=== PATIENT | male | born 1990 | race Caucasian/White ===

== ENCOUNTER 2019-01-24 03:40 | Inpatient (IN) | payer SELFPAY ==
[~2019-01-24] VITALS: Ht 182.9 cm; Wt 188.3 kg
--- OUTSIDE RECORDS SUMMARY | 2019-01-24 03:43 | XMS REPORT | Continuity of Care Document ---
Author Author [facility] Interface Address Unknown Phone Unavailable Problems Problem Status Onset Date Classification Date Reported Comments Source Otitis externa 01/06/2018 Diagnosis 01/06/2018 [facility] Medications Medication Details Route Status Patient Instructions Ordering Provider Order Date Source Ofloxacin 3 MG/ML Otic Solution ofloxacin 0.3 % ear drops INSTILL 10 DROPS (1.5 MG) INTO AFFECTED EAR(S) BY OTIC ROUTE 2 TIMES PER DAY x 10 days Active [facility] Allergies, Adverse Reactions, Alerts Substance Category Reaction Severity Reaction type Status Date Reported Comments Source Immunizations Immunization Date Given Site Status Last Updated Comments Source Results Order Name Results Value Reference Range Date Interpretation Comments Source Vital Signs Vital Sign Value Date Comments Source Diastolic (mm Hg) 80 01/06/2018 [facility] Height 72 01/06/2018 [facility] Systolic (mm Hg) 124 01/06/2018 [facility] Weight 350 01/06/2018 [facility] Encounters Location Location Details Encounter Type Encounter Number Reason For Visit Attending Provider ADM Date DC Date Status Source [place] - [facility] - [id number] Elroy Flores, [employer]: [address] [place] [address], Ph. [id number] Elroy Flores 01/06/2018 [facility] Procedures Procedure Code Date Perfomer Comments Source
--- OUTSIDE RECORDS SUMMARY | 2019-01-24 03:43 | XMS REPORT | Encounter Summary ---
Author Organization Unknown Address [address] [place] [address] Phone [phone] Reason for Visit Medical Complaint Instructions 1. Otitis externa ofloxacin 0.3 % ear drops swimmer's ear: care instructions Discussion Note Keep ear(s) dry when bathing/showering. Avoid swimming until treatment is complete. May use acetaminophen (ex: Tylenol) or ibuprofen (ex: Motrin) as indicated on package for pain. May use a warm compress for pain. Take medication(s) as prescribed for the indicated length of time. If no improvement in 3-5 days, or if new or worsening symptoms develop, follow up with a primary care physician. Use an additional form of control as antibiotics may decrease the effectiveness of control pills. Plan of Care Patient Instructions See handout Reminders Provider Appointments None recorded. Lab None recorded. Referral None recorded. Procedures None recorded. Surgeries None recorded. Imaging None recorded. Medications Name Start Date ofloxacin 0.3 % ear drops INSTILL 10 DROPS (1.5 MG) INTO AFFECTED EAR(S) BY OTIC ROUTE 2 TIMES PER DAY x 10 days Medications Administered None recorded. Vitals Height Weight BMI Blood Pressure 6 ft 350 lbs 47.5 kg/m2 124/80 mm[Hg] Lab Results None recorded. Allergies Code Code System Name Reaction Severity Status Onset NKDA Problems No Known Problems Procedures None recorded. Vaccine List None recorded. Social History Smoking Status Never Smoker Past Encounters 01/06/2018 Otitis Externa LATISHA Mallory: [address] [facility], [place] [address], Ph. History of Present Illness Ear Complaint Reported By: Patient HPI: Location: left. Quality: ears feel full/plugged, aching. Severity: same, continuous, current pain 7/10. Duration: constant, started 24 hours. Onset/Timing: still present, abrupt onset. Context: no sick contacts, no recent swimming/water in ear, no exposure to second hand smoke, no head trauma, not grinding teeth, no recent air travel. Modifying factors: hurts to lie on, or pull on ear, hurts to chew, OTC medication. Associated Symptoms: no discharge from the ears, no hearing loss, no nose/sinus problems, no popping noise in the ears, no ringing in the ears, no fever, no chills, no earache, no dizziness, no vertigo, no headache, no muscle aches Review of Systems:ROS as noted in the HPI Review of Systems Basic Reported By: Patient Physical Exam Adult Basic Reported By: Patient Constitutional: General Appearance: healthy-appearing, well-nourished, well-developed. Level of Distress: NAD. Ambulation: ambulating normally Psychiatric: Mental Status: active and alert. Orientation: to time, to place, to person Goz-Ovwv-Frgos-Throat: Ears: no lesions on external ear, no outer ear tenderness, TMs clear, EAC abnormality. Hearing: no hearing loss
[2019-01-24 05:28] LABS: BASOPHILS # (AUTO) 0.1 (0.0-0.1); BASOPHILS % 0.4 % (0.0-1.0); EOSINOPHILS # (AUTO) 0.2 (0.0-0.4); EOSINOPHILS % 1.2 % (0.0-6.0); HEMOGLOBIN 14.3 g/dL (14.0-18.0); LYMPHOCYTES # (AUTO) 5.1 (1.0-3.2); LYMPHOCYTES % 33.8 % (18.0-39.1); MEAN CORPUSCULAR HEMOGLOBIN 29.8 pg (28-32); MEAN CORPUSCULAR VOLUME 87.5 fL (81-99); MONOCYTES # (AUTO) 1.6 (0.2-0.8); MONOCYTES % 10.7 % (4.4-11.3); NEUTROPHILS # (AUTO) 8.1 (2.1-6.9); NEUTROPHILS % 53.4 % (38.7-80.0); PLATELET COUNT 279 x10e3/uL (140-360); RED CELL DISTRIBUTION WIDTH 12.7 % (11.7-14.4)
[2019-01-24 05:39] LABS: BILIRUBIN,URINE NEGATIVE (NEGATIVE); CLARITY,URINE CLOUDY (CLEAR); COLOR,URINE YELLOW (YELLOW); KETONES,URINE NEGATIVE (NEGATIVE); LEUKOCYTE ESTERASE ,URINE NEGATIVE (NEGATIVE); NITRITE,URINE NEGATIVE (NEGATIVE); PROTEIN,URINE DIPSTICK NEGATIVE (NEGATIVE); URINE UROBILINOGEN 0.2 mg/dL (0.2 - 1)
[2019-01-24] MEDS ORDERED: KETOROLAC TROMETHAMINE 30 MG/ML VIAL IV STA (05:45)
[2019-01-24] MEDS ORDERED: DICYCLOMINE HCL 20 MG/2 ML VIAL IM ONE (05:45)
[2019-01-24 05:49] LABS: ALANINE AMINOTRANSFERASE 57 IU/L (0-55); ALBUMIN 3.6 g/dL (3.5-5.0); ALBUMIN/GLOBULIN RATIO 0.9 (0.8-2.0); ALKALINE PHOSPHATASE 78 IU/L (40-150); AMYLASE 49 U/L (25-125); ANION GAP 10.6 mmol/L (8-16); BLOOD UREA NITROGEN 12 mg/dL (7-26); BUN/CREATININE RATIO 10 (6-25); CALCIUM 9.2 mg/dL (8.4-10.2); CARBON DIOXIDE 26 mmol/L (22-29); CHLORIDE 104 mmol/L (98-107); CREATININE, SERUM 1.15 mg/dL (0.72-1.25); EST GLOMERULAR FILTRATION RATE > 60 ML/MIN (60-); GLUCOSE 117 mg/dL (74-118); LIPASE 52 U/L (8-78); POTASSIUM 3.6 mmol/L (3.5-5.1); SODIUM 137 mmol/L (136-145)
[2019-01-24 06:01] LABS: BACTERIA,URINE FEW /HPF; EPITHELIAL CELLS,URINE RARE /LPF; RBC,URINE >50 /HPF (0-5); WBC,URINE (MAN) 0-5 /HPF (0-5)
[2019-01-24 06:02] LABS: YEAST,URINE FEW
[2019-01-24] MEDS ORDERED: SODIUM CHLORIDE 0.9% 1000ML 1,000 ML IV SCH (06:15)
[2019-01-24] MEDS ORDERED: IOPAMIDOL 370 MG/ML 200 ML INFUS..BTL INJ ONE (06:18)
[2019-01-24] MEDS ORDERED: SODIUM CHLORIDE 0.9% 50ML 50 ML ONE (06:18)
--- NOTE | 2019-01-24 06:56 | Diagnostic Imaging Report ---
EXAMINATION: CT of the abdomen and pelvis with contrast. TECHNIQUE: Spiral CT images of the abdomen and pelvis were performed from the lung bases to the lesser trochanters after the intravenous administration of 100 cc of Isovue 370 and the oral administration of water. Coronal and sagittal reformatted images were obtained. COMPARISON: None. CLINICAL HISTORY:Right lower quadrant pain radiating to the groin DISCUSSION: ABDOMEN/PELVIS: LOWER THORAX:Unremarkable. HEPATOBILIARY: Diffuse hepatic steatosis. No focal hepatic lesions. No intra or extrahepatic biliary ductal dilation. GALLBLADDER: No radio-opaque stones or sludge. No wall thickening. SPLEEN: No splenomegaly. PANCREAS: No focal masses or ductal dilatation. ADRENALS: No adrenal nodules. KIDNEYS/URETERS: 2-3 mm calculus in the distal right ureter (series 2, image 90), which results in mild periureteral stranding, and a slightly delayed right nephrogram. No geraldo hydronephrosis or hydroureter. 5 mm nonobstructing calculus in the right mid to inferior aspect (series 2, image 44). No other renal or ureteral calculi. No left hydronephrosis or hydroureter. No solid enhancing masses. PELVIC ORGANS/BLADDER: No focal lesions, wall thickening or stones. Prostate is unremarkable. PERITONEUM/RETROPERITONEUM: No free air or fluid. LYMPH NODES: No intra-abdominal, retroperitoneal, pelvic or inguinal lymphadenopathy. VESSELS: The celiac trunk,superior and inferior mesenteric and bilateral renal arteries are patent The portal, superior mesenteric and splenic veins are patent. GI TRACT: No bowel dilation or wall thickening. No pericolonic inflammatory changes. Appendix is identified and normal in caliber. BONES AND SOFT TISSUE: No aggressive lytic lesions. No soft tissue abnormalities. IMPRESSION: 1. 2-3 mm calculus in the distal right ureter, which results in mild periureteral stranding and a slightly delayed right nephrogram. No geraldo hydronephrosis or hydroureter. 2. 5 mm nonobstructing calculus in the mid to inferior right kidney. 3. Diffuse hepatic steatosis. Signed by: Dr. Tristan Sosa M.D. on 01/24/2019 6:53 AM
[2019-01-24] MEDS ORDERED: MORPHINE SULFATE 2 MG/ML SYR 1ML IV PRN (07:00)
[2019-01-24] MEDS: SODIUM CHLORIDE 0.9% 1000ML 1,000 ML IV SCH ×3 (07:16→22:23)
--- OUTSIDE RECORDS SUMMARY | 2019-01-24 07:21 | XMS REPORT ---
Author Author [facility] Address Unknown Phone Unavailable Care Team Providers Care Celery Stripper Name Role Phone Adam HAMILTON Unavailable Unavailable Problems This patient has no known problems. Allergies, Adverse Reactions, Alerts This patient has no known allergies or adverse reactions. Medications This patient has no known medications. Results Test Description Test Time Test Comments Text Results Atomic Results Result Comments CT ABDOMEN/PELVIS W 2019-01-24 06:46:00 [place] [address] Patient Name: ZULEMA COOPER MR #: [id number] : 1990 Age/Sex: 28/M Req #: [id number] Adm Physician: Ordered by: BRENDON HAMILTON MD Report #: [id number] Location: ER Room/Bed: Procedure: [id number] CT/CT ABDOMEN/PELVIS W Exam Date: 01/24/19 Exam Time: 624 REPORT STATUS: Signed EXAMINATION: CT of the abdomen and pelvis with contrast . TECHNIQUE: Spiral CT images of the abdomen and pelvis were performed from the lung bases to the lesser trochanters after the intravenous administration of 100 cc of Isovue 370 and the oral administration of water. Coronal and sagittal reformatted images were obtained. COMPARISON: None. CLINICAL HISTORY:Right lower quadrant pain radiating to the groin DISCUSSION: ABDOMEN/PELVIS: LOWER THORAX:Unremarkable. HEPATOBILIARY: Diffuse hepatic steatosis. No focal hepatic lesions. No intra or extrahepatic biliary ductal dilation. GALLBLADDER: No radio-opaque stones or sludge. No wall thickening. SPLEEN: No splenomegaly. PANCREAS: No focal masses or ductal dilatation. ADRENALS: No adrenal nodules. KIDNEYS/URETERS: 2-3 mm calculus in the distal right ureter (series 2, image 90), which results in mild periureteral stranding, and a slightly delayed right nephrogram. No geraldo hydronephrosis or hydroureter. 5 mm nonobstructing calculus in the right mid to inferior aspect (series 2, image 44). No other renal or ureteral calculi. No left hydronephrosis or hydroureter. No solid enhancing masses. PELVIC ORGANS/BLADDER: No focal lesions, wall thickening or stones. Prostate is unremarkable. PERITONEUM/RETROPERITONEUM: No free air or fluid. LYMPH NODES: No intra- abdominal, retroperitoneal, pelvic or inguinal lymphadenopathy. VESSELS: The celiac trunk,superior and inferior mesenteric and bilateral renal arteries are patent The portal, superior mesenteric and splenic veins are patent. GI TRACT: No bowel dilation or wall thickening. No pericolonic inflammatory changes. Appendix is identified and normal in caliber. BONES AND SOFT TISSUE: No aggressive lytic lesions. No soft tissue abnormalities. IMPRESSION: 1. 2-3 mm calculus in the distal right ureter, which results in mild periureteral stranding and a slightly delayed right nephrogram. No geraldo hydronephrosis or hydroureter. 2. 5 mm nonobstructing calculus in the mid to inferior right kidney. 3. Diffuse hepatic steatosis. Signed by: Dr. Bakari Ordoñez M.D. on 01/24/2019 6:53 AM Dictated By: BAKARI ORDOÑEZ MD 2 Transcribed By: GODWIN on 01/24/19652 COPY TO: BRENDON HAMILTON MD
[2019-01-24] MEDS: CEFTRIAXONE SOD 1 GM/NS 50 ML 50 ML IV SCH (08:28)
[2019-01-24] MEDS: ONDANSETRON HCL INJ 2MG/ML 2ML 2 MG/ML VIAL IV PRN ×4 (08:50→20:23)
[2019-01-24] MEDS: MORPHINE SULFATE INJ 4 MG/ML INJ 1ML IV PRN ×4 (08:50→20:23)
--- NOTE | 2019-01-24 09:15 | NUR ---
PATIENT PLACED ON HOSPITAL BED.
--- NOTE | 2019-01-24 11:16 | NUR ---
Patient arrived from the ER via bed with diagnosis of pyelonephritis. Patient is awake and alertx3 in NAD. POC discussed. Vital signs are stable. Patient instructed to call for assistance as needed and verbalized understanding.
[2019-01-24 11:23] LABS: LYMPHOCYTES % (MANUAL) 47 % (19-48); MONOCYTES % (MANUAL) 4 % (3.4-9.0); NEUTROPHILS % (MANUAL) 45 % (40-74)
[2019-01-24 11:25] LABS: PLATELET ESTIMATE ADEQUATE; PLATELET MORPHOLOGY COMMENT NORMAL; RBC MORPHOLOGY COMMENT NORMAL
[2019-01-24 11:45] VITALS: BP 157/85
[2019-01-24 11:47] VITALS: BP 157/85
[2019-01-24 11:59] VITALS: BP 157/85
[2019-01-24 15:43] VITALS: BP 129/84
[2019-01-24 19:00] VITALS: BP 129/84
[2019-01-24 19:15] VITALS: BP 137/84
[2019-01-25] VITALS (7 sets, daily range): BP systolic 131–152; BP diastolic 77–86
[2019-01-25] MEDS: MORPHINE SULFATE INJ 4 MG/ML INJ 1ML IV PRN ×5 (00:50→12:30)
[2019-01-25] MEDS: ONDANSETRON HCL INJ 2MG/ML 2ML 2 MG/ML VIAL IV PRN ×4 (00:50→12:30)
--- NOTE | 2019-01-25 01:51 | History and Physical ---
CHIEF COMPLAINT: The patient comes in with abdominal pain. HISTORY OF PRESENTING ILLNESS: Mr. Franchesca Martinez is a 28-year-old morbidly obese gentleman, who was in usual state of health until the patient started with right flank pain and right lower quadrant pain radiating all the way to the groin area. The patient complains of pain and discomfort with urination and frequency, and pain is about 8/10 in intensity, and the patient came into the emergency room and was admitted for kidney stone and pyelonephritis. PAST MEDICAL HISTORY: Noncontributory. ALLERGIES: NO KNOWN ALLERGIES. SOCIAL HISTORY: Never smoker. MEDICATIONS: The patient is on Rocephin q.12 hours at this time, sodium chloride 100 mL an hour, morphine sulfate, and Zofran. FAMILY HISTORY: Noncontributory. PAST SURGICAL HISTORY: Noncontributory. REVIEW OF SYSTEMS: Negative for chest pain. No shortness of breath. No nausea, vomiting, or diarrhea. No constipation. No rectal bleeding. No hematochezia. No hematemesis. Positive for dysuria. LABORATORY DATA: The patient's initial laboratory values; white count of 15,000, hemoglobin of 14.3, hematocrit of 42.0. Chemistries; sodium 137, BUN of 12, creatinine of 1.5. Urine showed 4+ blood, negative leukocyte esterase, and also negative nitrites. IMAGING STUDIES: CT scan shows 2 to 3 mm calculus at the distal right ureter. There is also mild periureteral stranding and also slightly delayed right nephrogram. No geraldo hydronephrosis or hydroureter. A 5 mm nonobstructing calculus in the mid inferior right kidney and diffuse hepatic steatosis. ASSESSMENT: Pyelonephritis. We will continue culturing the urine. The patient is on morphine for pain control. A consult with Dr. Hunt will be done. Further recommendations per clinical course. We will continue to monitor the patient. MD ROSA ChildsJ/MODL /[id number]
[2019-01-25] MEDS: CEFTRIAXONE SOD 1 GM/NS 50 ML 50 ML IV SCH (06:20)
[2019-01-25 06:23] LABS: BASOPHILS # (AUTO) 0.1 (0.0-0.1); BASOPHILS % 0.4 % (0.0-1.0); EOSINOPHILS # (AUTO) 0.1 (0.0-0.4); EOSINOPHILS % 0.9 % (0.0-6.0); HEMATOCRIT 38.6 % (38.2-49.6); HEMOGLOBIN 12.6 g/dL (14.0-18.0); LYMPHOCYTES # (AUTO) 3.1 (1.0-3.2); LYMPHOCYTES % 23.2 % (18.0-39.1); MEAN CORPUSCULAR HEMOGLOBIN 29.6 pg (28-32); MEAN CORPUSCULAR HGB CONC 32.6 g/dL (31-35); MEAN CORPUSCULAR VOLUME 90.6 fL (81-99); MONOCYTES # (AUTO) 1.7 (0.2-0.8); MONOCYTES % 13.1 % (4.4-11.3); NEUTROPHILS # (AUTO) 8.2 (2.1-6.9); NEUTROPHILS % 62.1 % (38.7-80.0); PLATELET COUNT 233 x10e3/uL (140-360); RED BLOOD COUNT 4.26 x10e6/uL (4.3-5.7); RED CELL DISTRIBUTION WIDTH 12.8 % (11.7-14.4)
[2019-01-25 06:46] LABS: ANION GAP 10.8 mmol/L (8-16); CALCIUM 8.4 mg/dL (8.4-10.2); CREATININE, SERUM 1.61 mg/dL (0.72-1.25); POTASSIUM 3.8 mmol/L (3.5-5.1)
--- NOTE | 2019-01-25 07:00 | NUR ---
Patient is awake and alert x3. Currently NPO per Dr. Hunt and patient is aware. POC discussed. Patient instructed to call for assistance as needed and verbalized understanding. Call guadarrama within reach. Girl friend at the bedside.
[2019-01-25] MEDS: SODIUM CHLORIDE 0.9% 1000ML 1,000 ML IV SCH ×3 (08:41→22:16)
--- NOTE | 2019-01-25 17:00 | NUR ---
Dr. Hunt at the bedside making rounds. Patient informed by MD reason he was NPO and the need to ambulate frequently.
[2019-01-26] VITALS (8 sets, daily range): BP systolic 128–144; BP diastolic 70–94
--- NOTE | 2019-01-26 00:19 | Consultation ---
DATE OF CONSULTATION: 01/25/2019 Urology Consultation REASON FOR CONSULTATION: Ureterolithiasis. HISTORY OF PRESENT ILLNESS: Franchesca Martinez is a 28-year-old man with no previous urological history. Denies previous hematuria, dysuria, urinary tract infections, or urolithiasis. The patient has severe right-sided flank pain radiating to the right lower quadrant and radiating to the right testicle. He reported to the emergency room and was subsequently admitted. The patient was found to have small distal right ureterolithiasis and he was subsequently admitted. The nurses have been straining the urine and the patient knows to strain his urine. PAST MEDICAL AND SURGICAL HISTORY: Relatively unremarkable. ALLERGIES: NONE KNOWN. CURRENT MEDICATIONS: Please refer to MAR. SOCIAL HISTORY: The patient denies smoking, ethanol, or drug use. He is currently unemployed. FAMILY HISTORY: Significant for urolithiasis. REVIEW OF SYSTEMS: Discussed as above in history of present illness and past medical history, otherwise negative for all systems. PHYSICAL EXAMINATION: GENERAL: Healthy-appearing morbidly obese male, lying in bed, no apparent distress. VITAL SIGNS: He is currently afebrile. Vitals signs are currently stable. ABDOMEN: Soft, obese, nondistended, nontender without costovertebral angle tenderness. Kidneys are not palpable, without hepatosplenomegaly. No obvious evidence of hernia. GENITOURINARY: Testes descended bilaterally. Testes and epididymis bilaterally palpably normal. The patient has a normal circumcised male phallus with normal meatus without any lesion. Digital rectal examination is deferred at the present time. For the remaining physical examination and systems, please refer to the admission history and physical on the chart. LABORATORY STUDIES: The patient's white blood cell count is elevated at 13,180, hemoglobin slightly low at 12.6, platelets are normal at 233,000. The patient's creatinine is elevated at 1.61, yesterday it was normal at 1.15. Urinalysis is significant for microscopic hematuria. CT scan of the abdomen and pelvis revealed 2 to 3 mm stone in distal right ureter. No hydronephrosis was noted, but due to the fact the patient was given contrast with the CT despite having microscopic hematuria, some delay of contrast drainage was noted on the right-hand side. There was a 5 mm stone that is nonobstructing in the right kidney as well. ASSESSMENT: 1. Right distal ureterolithiasis. 2. Family history of urolithiasis. 3. Leukocytosis. 4. Anemia. 5. Presumably acute renal failure. 6. Microscopic hematuria. 7. Right renal colic. 8. Right nephrolithiasis, this is not obstructing. PLAN: 1. Stone passage trial. 2. IV hydration. 3. IV analgesia. 4. IV antibiotics. 5. Straining of the urine. 6. Stone passage trial should be the main formal therapy due to the fact the patient has well over 50% chance of passing this stone. 7. Ongoing urological followup is a must for both metabolic stone workup as well as management of his nonobstructing right renal stone. Thank you very much for allowing us in the care of your patient. We will be happy to follow along with you as well as an outpatient. Alvaro Hunt MD [place]/MODL /[id number] cc: Nas Triplett MD
[2019-01-26] MEDS: ONDANSETRON HCL INJ 2MG/ML 2ML 2 MG/ML VIAL IV PRN ×2 (01:35→05:43)
[2019-01-26] MEDS: MORPHINE SULFATE INJ 4 MG/ML INJ 1ML IV PRN ×2 (01:35→05:43)
[2019-01-26 06:00] LABS: BASOPHILS % 0.3 % (0.0-1.0); EOSINOPHILS # (AUTO) 0.1 (0.0-0.4); EOSINOPHILS % 1.1 % (0.0-6.0); HEMATOCRIT 36.4 % (38.2-49.6); LYMPHOCYTES # (AUTO) 2.4 (1.0-3.2); LYMPHOCYTES % 20.3 % (18.0-39.1); MEAN CORPUSCULAR HEMOGLOBIN 29.1 pg (28-32); MEAN CORPUSCULAR VOLUME 88.1 fL (81-99); MONOCYTES # (AUTO) 1.3 (0.2-0.8); MONOCYTES % 11.4 % (4.4-11.3); NEUTROPHILS # (AUTO) 7.7 (2.1-6.9); NEUTROPHILS % 66.4 % (38.7-80.0); PLATELET COUNT 225 x10e3/uL (140-360); RED BLOOD COUNT 4.13 x10e6/uL (4.3-5.7); RED CELL DISTRIBUTION WIDTH 12.3 % (11.7-14.4)
[2019-01-26] MEDS: CEFTRIAXONE SOD 1 GM/NS 50 ML 50 ML IV SCH (06:15)
[2019-01-26] MEDS: SODIUM CHLORIDE 0.9% 1000ML 1,000 ML IV SCH ×3 (06:16→17:04)
[2019-01-26 06:25] LABS: ANION GAP 10.5 mmol/L (8-16); CALCIUM 8.4 mg/dL (8.4-10.2); CREATININE, SERUM 1.57 mg/dL (0.72-1.25); POTASSIUM 3.5 mmol/L (3.5-5.1)
--- NOTE | 2019-01-26 07:18 | NUR ---
BEDSIDE ROUNDS COMPLETED AND ASSUMED CARE OF PATIENT, IVF INFUSING AT 125/HR. PIV HAS NO EVIDENCE OF INFILTRATION OR LEAKAGE. AT BEDSIDE
--- NOTE | 2019-01-26 10:00 | NUR ---
PATIENT COMPLAINS OF PAIN AT THE LOWER BACK AND ABDOMEN. HE WAS OFFERED IV MEDS AND REFUSED, CALLED DR. ADAME FOR PO PAIN MED, AND NORCO ORDERED.
--- NOTE | 2019-01-26 12:30 | NUR ---
PATIENT RECEIVED NORCO FOR PAIN AND SCALE IS 6/10
[2019-01-26] MEDS: HYDROCODONE/APAP 10MG-325MG TAB PO PRN ×2 (12:45→20:01)
--- NOTE | 2019-01-26 16:06 | Diagnostic Imaging Report ---
Exam: Abdominal film Clinical History: calculi Comparison: None. DISCUSSION: Nonobstructive bowel gas pattern. Right lower quadrant phlebolith. Prior punctate right distal ureteral stone passed. Prior punctate right renal calculus not visualized radiographically. IMPRESSION: Nonobstructive bowel gas pattern. Signed by: Dr. Tuan Nelson M.D. on 01/26/2019 4:02 PM
--- NOTE | 2019-01-26 16:30 | NUR ---
PATIENT HAS SHOWERED AND STATED THAT HE FORGOT TO TELL DR. STEIN THAT HE URINATED IN THE SHOWER AND EXPERIENCED PAIN, HE FEELS BETTER AND HAS NO PAIN NOW, WILL CALL [facility].
--- NOTE | 2019-01-26 16:40 | NUR ---
ABDOMINAL XRAY ORDERED TO SEE IF STONE CLEARED.
--- NOTE | 2019-01-26 18:00 | NUR ---
ABDOMINAL XRAY DONE AND SHOWS NO STONE PRESENT. [facility]
--- NOTE | 2019-01-26 19:30 | NUR ---
REPORT GIVEN TO MACKENZIE PAPPAS AND HE WILL NOTIFY [facility] OF THE XRAY RESULTS
[2019-01-27] VITALS: BP 124/70
[2019-01-27 04:00] VITALS: BP 140/73
[2019-01-27] MEDS: HYDROCODONE/APAP 10MG-325MG TAB PO PRN (04:31)
[2019-01-27] MEDS: CEFTRIAXONE SOD 1 GM/NS 50 ML 50 ML IV SCH (06:00)
[2019-01-27] MEDS: SODIUM CHLORIDE 0.9% 1000ML 1,000 ML IV SCH (06:00)
[2019-01-27 07:40] VITALS: BP 125/80
[2019-01-27 08:06] LABS: BASOPHILS # (AUTO) 0.1 (0.0-0.1); BASOPHILS % 0.5 % (0.0-1.0); EOSINOPHILS # (AUTO) 0.2 (0.0-0.4); EOSINOPHILS % 1.5 % (0.0-6.0); HEMATOCRIT 37.4 % (38.2-49.6); HEMOGLOBIN 12.6 g/dL (14.0-18.0); LYMPHOCYTES # (AUTO) 2.3 (1.0-3.2); LYMPHOCYTES % 19.5 % (18.0-39.1); MEAN CORPUSCULAR HEMOGLOBIN 29.9 pg (28-32); MEAN CORPUSCULAR HGB CONC 33.7 g/dL (31-35); MEAN CORPUSCULAR VOLUME 88.8 fL (81-99); MONOCYTES # (AUTO) 1.5 (0.2-0.8); MONOCYTES % 12.6 % (4.4-11.3); NEUTROPHILS # (AUTO) 7.7 (2.1-6.9); NEUTROPHILS % 65.6 % (38.7-80.0); PLATELET COUNT 225 x10e3/uL (140-360); RED BLOOD COUNT 4.21 x10e6/uL (4.3-5.7); RED CELL DISTRIBUTION WIDTH 12.4 % (11.7-14.4)
[2019-01-27 08:26] LABS: ANION GAP 9.7 mmol/L (8-16); CALCIUM 8.8 mg/dL (8.4-10.2); CREATININE, SERUM 1.54 mg/dL (0.72-1.25); POTASSIUM 3.7 mmol/L (3.5-5.1)
[2019-01-27 09:20] VITALS: BP 125/63
--- NOTE | 2019-01-27 09:42 | NUR ---
GAVE PACKET OF INFORMATION WITH [facility] [employer] FOR ASSISTANCE WITH LOW TO NO INCOME TO PATIENT. RESOURCES THAT PATIENT MAY BE ABLE TO FOLLOW UP UPON DISCHARGE. PT EDUCATED ON EACH RESOURCE AND UNDERSTANDING HOW TO FOLLOW UP TO SEE IF QUALIFIED FOR EACH RESOURCE.
[2019-01-27] MEDS ORDERED: CEPHALEXIN500 MG PO (09:50)
[2019-01-27] MEDS ORDERED: ULTRAM50 MG PO (09:50)
--- NOTE | 2019-01-27 09:55 | NUR ---
SOCIAL WORK INITIAL ASSESSMENT Utility Aide to bedside to discuss plan of care with patient/family. CM/SW role and care transitions discussed. Anticipated discharge plan discussed along with duration of care. CM/SW discussed patients right to make decisions in care. CM/SW work hours given. Patient lives: IN HOUSE WITH FAMILY Admit/Transfer: VIA ED FROM HOME POA/Emergency contact: MOTHER SASHA [phone] Current/Previous Home Health: NONE PCP/Follow-up Care: FRITZ Current/Previous DME: NONE Other Services: NONE Employment Status: NOT WORKING AT THIS TIME BUT USUALLY IN RETAIL Areas of Concerns: SELF PAY GAVE PACKET Referral Needs: NA Education Needs: NONE IMM/PINTO given and signed (if applicable): NA Goal for discharge: RETURN HOME INDEPENDENTLY CM/SW left business card at the bedside with contact information. Name and number was also written on the patients whiteboard. Patient verbalized understanding of discussion. CM will follow-up with ongoing discharge and transition of care needs.
--- NOTE | 2019-01-27 13:42 | Progress Note ---
DATE: SUBJECTIVE: This patient was admitted to [place] [address] for kidney stone. The patient is currently asymptomatic. No pain has been monitored. Fluid has been given. The patient apparently has passed or thinks that he has passed a stone in the shower. Currently asymptomatic. Pain has completely dissipated. MEDICATIONS: Rocephin, morphine sulfate, and sodium chloride. LABORATORY VALUES: White count is 11,000, hemoglobin of 12.0, hematocrit of 36, left shift at 7.7. Chemistries; sodium of 136, creatinine is 1.57. Estimated GFR is 53. OBJECTIVE: VITAL SIGNS: Temperature is 97.8, pulse of 76, blood pressure is 140/73, pulse oximeter of 96%. HEENT: Normocephalic, atraumatic. CVS: S1 and S2 normal. Regular rate and rhythm. ABDOMEN: Nontender, nondistended. EXTREMITIES: No clubbing, no cyanosis, no edema. ASSESSMENT: Right distal ureterolithiasis, leukocytosis, anemia, acute renal failure on chronic setting, microscopic hematuria, and renal colic. PLAN: Plan is to continue the patient on IV fluids. Urology can assess the patient. Since the patient's pain has dissipated, can be discharged on tramadol and Keflex. However, his kidney functions have deteriorated and we will have Dr. Hunt assess the situation. If needed, the patient can be discharged and can be followed up in the outpatient setting and increase fluid intake will be recommended. Further recommendation per clinical course and also Dr. Alvaro Hunt's recommendations. MD ARTURO Childs/OSNIDO /[id number]
== END 2019-01-27 10:14 | disposition home or self-care (01) | DRG 690 ==
LOC: ER 03:40 → ERHOLD 07:18 → IMCU 11:13 → OBSVTOIN 01-26 13:36
PROVIDERS: ADMIT Family Medicine; ATTEND Family Medicine
DX: N13.6 Pyonephrosis (principal); Z68.43 Body mass index [BMI] 50.0-59.9, adult; N17.9 Acute kidney failure, unspecified; E66.01 Morbid (severe) obesity due to excess calories; D64.9 Anemia, unspecified; R31.29 Other microscopic hematuria
CPT/HCPCS: 36415; 74018; 74177; 80048; 80053; 81001; 82150; 83690; 83970; 84550; 85025; 87086; 99284; G0378; J0500; J0696; J1885; J2270; J2405; J7030; Q9967